=== PATIENT | male | born 2000 | race Caucasian/White ===

== ENCOUNTER 2018-09-03 12:28 | Emergency (ER) | payer OTHER ==
[2018-09-03] MEDS ORDERED: NS 1,000 ML IV ONE (13:22)
--- NOTE | 2018-09-03 13:24 | EDPHY ---
HPI/HX/ROS/PE/MDM Narrative: CHIEF COMPLAINT: Altered mental status HPI: The patient is a 17-year-old male with no known past medical history. He was brought to the emergency department by ambulance after he was found to be very altered at his place of business. Apparently the patient admitted to eating some edible marijuana followed by altered mental status and possible syncope. On my exam, the patient denies complaints. He stopped taking his low dose of anti-depressant two weeks ago. REVIEW OF SYSTEMS: Unable to obtain secondary to altered mental status. PMH: No known significant past medical history. SOCIAL HISTORY: Single. Admits to marijuana use. PHYSICAL EXAM: General:Patient is awake, in no acute distress. ENT:Eyes are normal to inspection. ENT inspection normal. Neck: Normal inspection. Full range of motion. Respiratory:No respiratory distress. Breath sounds normal bilaterally. Cardiovascular: Regular rate and rhythm. Strong peripheral pulses. Normal cap refill. Abdomen:The abdomen is nontender to palpation. There are no peritoneal signs. There are normal bowel sounds. Back: Normal to inspection. No tenderness to palpation. Skin: Normal color. No rash. Warm and dry. Extremities: Normal appearance. Full range of motion. Neuro: Patient is extremely slow to respond. Normal motor function. Normal sensory function. (Zeus Hogue) ED Course: 1520: Patient care assumed from Dr. Hogue pending sobriety. 1558: Patient is sober and ambulatory. He is safe to be discharged home. (Pola Limon) MDM: This patient presents with signs and symptoms that seem most consistent with marijuana ingestion. Over multiple re-evaluations, he appears to be slowly returning to baseline. His mother is not bedside and confirms that the patient has no real history of drug abuse and she will ensure that he is kept safe. ( Zeus Hogue) - Data Points Laboratory Results: Laboratory Results 09/03/18 12:35 09/03/18 12:35 09/03/18 09/03/18 12:35 12:35 WBC 9.44 10^3/uL 10^3/uL (3.80-9.50) RBC 4.85 10^6/uL 10^6/uL (4.40-6.38) Hgb 14.9 g/dL g/dL (13.7-17.5) Hct 42.3 % % (40.0-51.0) MCV 87.2 fL fL (81.5-99.8) MCH 30.7 pg pg (27.9-34.1) MCHC 35.2 g/dL g/dL (32.4-36.7) RDW 12.3 % % (11.5-15.2) Plt Count 218 10^3/uL 10^3/uL (150-400) MPV 11.8 fL H fL (8.7-11.7) Neut % (Auto) 43.0 % % (39.3-74.2) Lymph % (Auto) 46.5 % H % (15.0-45.0) [place] % (Auto) 6.3 % % (4.5-13.0) Eos % (Auto) 2.4 % % (0.6-7.6) Baso % (Auto) 0.7 % % (0.3-1.7) Nucleat RBC Rel Count 0.0 % % (0.0-0.2) Absolute Neuts (auto) 4.06 10^3/uL 10^3/uL (1.70-6.50) Absolute Lymphs (auto) 4.39 10^3/uL H 10^3/uL (1.00-3.00) Absolute Monos (auto) 0.59 10^3/uL 10^3/uL (0.30-0.80) Absolute Eos (auto) 0.23 10^3/uL 10^3/uL (0.03-0.40) Absolute Basos (auto) 0.07 10^3/uL 10^3/uL (0.02-0.10) Absolute Nucleated RBC 0.00 10^3/uL 10^3/uL (0-0.01) Immature Gran % 1.1 % % (0.0-1.1) Immature Gran # 0.10 10^3/uL 10^3/uL (0.00-0.10) Sodium 140 mEq/L mEq/L (135-145) Potassium 4.2 mEq/L mEq/L (3.5-5.2) Chloride 106 mEq/L mEq/L (97-110) Carbon Dioxide 22 mEq/l mEq/l (22-31) Anion Gap 12 mEq/L mEq/L (6-14) BUN 19 mg/dL mg/dL (7-23) Creatinine 0.8 mg/dL mg/dL (0.7-1.3) Estimated GFR > 60 Glucose 136 mg/dL H mg/dL (70-100) Calcium 10.0 mg/dL mg/dL (8.5-10.4) Medications Given: Discontinued Medications Sodium Chloride (Ns) 1,000 mls @ 0 mls/hr IV EDNOW ONE; Wide Open PRN Reason: Protocol Stop: 09/03/18 13:23 Last Admin: 09/03/18 13:31 Dose: 1,000 mls General Time Seen by Provider: 09/03/18 12:41 Initial Vital Signs: Initial Vital Signs Temperature (C) 37.0 C 09/03/18 12:48 Heart Rate 91 09/03/18 12:48 Respiratory Rate 18 09/03/18 12:48 Blood Pressure 137/84 H 09/03/18 12:48 O2 Sat (%) 92 09/03/18 12:48 O2 Delivery Mode Room Air Allergies/Adverse Reactions: No Known Allergies Allergy (Unverified 09/03/18 12:46) Home Medications: Medication Instructions Recorded NK [No Known Home Meds] 09/03/18 Departure - Departure Disposition: Home, Routine, Self-Care Clinical Impression: Marijuana intoxication Qualifiers: Complication of substance-induced condition: uncomplicated Qualified Code(s): F12.920 - Cannabis use, unspecified with intoxication, uncomplicated Condition: Good Instructions: Additional Information Additional Instructions: Follow-up with your primary doctor within 72 hours. Return to the Emergency Department for fever, chest pain, shortness of breath, confusion, seizure, headache, worsening of condition. Referrals: [facility],. [Clinic] - As per Instructions
[2018-09-03 13:29] LABS: PLATELET COUNT 218 10^3/uL (150-400)
--- NOTE | 2018-09-03 15:16 | CPEKG ---
Test Reason : OPEN Blood Pressure : / mmHG Vent. Rate : 095 BPM Atrial Rate : 094 BPM P-R Int : 188 ms QRS Dur : 092 ms QT Int : 337 ms P-R-T Axes : 060 -11 050 degrees QTc Int : [address] elev, probable normal early repol pattern Confirmed by Zeus Hogue ([id number]) on 09/03/2018 3:15:30 PM Referred By: Zeus Hogue Confirmed By:Zeus Hogue
[2018-09-03 16:04] VITALS: BP 129/78
== END 2018-09-03 16:07 | disposition home or self-care (01) ==
DX: F12.920 Cannabis use, unspecified with intoxication, uncomplicated (principal); E86.9 Volume depletion, unspecified